=== PATIENT | male | born 1970 | race Two or more races ===

== ENCOUNTER 2017-09-19 11:48 | Emergency (ER) | payer BC ==
[~2017-09-19] VITALS: Ht 170.2 cm; Wt 75.7 kg
[~2017-09-19 11:48] MED LIST: NEXIUM40 MG ORAL
[2017-09-19] MEDS ORDERED: ASPIRIN81 MG ORAL (12:01)
[2017-09-19] MEDS ORDERED: BRILINTA90 MG PO (12:01)
[2017-09-19 12:56] VITALS: BP 120/74
[2017-09-19 13:28] LABS: BASOPHILS % (AUTO) 0.4 % (0.0-2.0); EOSINOPHILS % (AUTO) 1.5 % (0.0-3.0); HEMOGLOBIN 16.3 G/DL (14.2-18.0); LYMPHOCYTES % (AUTO) 16.7 % (20.0-45.0); MEAN CORPUSCULAR VOLUME 88 FL (80-99); MONOCYTES % (AUTO) 12.9 % (1.0-10.0); NEUTROPHILS % (AUTO) 68.6 % (45.0-75.0); PLATELET COUNT 197 K/UL (150-450); RED BLOOD COUNT 5.19 M/UL (4.70-6.10); RED CELL DISTRIBUTION WIDTH 10.7 % (11.6-14.8); WHITE BLOOD COUNT 8.4 K/UL (4.8-10.8)
[2017-09-19] MEDS ORDERED: DiphenhydrAMINE 50mg/ml Inj IVP ONE (13:45)
[2017-09-19 13:54] LABS: APPEARANCE,URINE CLEAR; BILIRUBIN, URINE NEGATIVE (NEGATIVE); GLUCOSE, URINE (UA) NEGATIVE (NEGATIVE); KETONES,URINE NEGATIVE (NEGATIVE); LEUKOCYTE ESTERASE ,URINE 1+ (NEGATIVE); NITRITE,URINE NEGATIVE (NEGATIVE); PH,URINE 6 (4.5-8.0); PROTEIN,URINE 2+ (NEGATIVE); UROBILINOGEN,URINE 4 MG/DL (0.0-1.0)
[2017-09-19 13:54] LABS: ALANINE AMINOTRANSFERASE 63 U/L (12-78); ALBUMIN 3.6 G/DL (3.4-5.0); ALKALINE PHOSPHATASE 82 U/L (46-116); ANION GAP 9 mmol/L (5-15); ASPARTATE AMINO TRANSFERASE 22 U/L (15-37); BILIRUBIN,TOTAL 0.7 MG/DL (0.2-1.0); BLOOD UREA NITROGEN 18 mg/dL (7-18); CALCIUM 8.5 MG/DL (8.5-10.1); CARBON DIOXIDE 27 MMOL/L (21-32); CHLORIDE 100 MMOL/L (98-107); CREATINE KINASE 71 U/L (26-308); CREATININE 0.9 MG/DL (0.55-1.30); SODIUM 136 MMOL/L (136-145)
[2017-09-19 13:56] LABS: POTASSIUM 2.7 MMOL/L (3.5-5.1)
[2017-09-19 14:13] LABS: COLOR,URINE YELLOW
--- NOTE | 2017-09-19 14:34 | Emergency Room Report ---
History of Present Illness General Chief Complaint: Nausea, Vomiting, and Diarrhea Source: Patient Present Illness HPI Patient with recent trip to [place]. He ate [place] food and after began to have vomiting and diarrhea. The vomiting has persisted. The diarrhea has been copious, watery without blood. There have been cramps which are rated at 2-3/ 10. Might have vomited scant amount of blood with forceful vomiting. Feels weak. No fevers, headache, URI sy, cough. He feels a pressure in his chest and is concerned as he had recent angioplasty with some myocardial damage. The feels more like burning in stomach but there is also pressure. This feeling does not radiate. He is concerned about his heart and also feels overwhelming nausea. Stressful job. Aside from CAD, denies other medical problems (DM, HTN). He is on meds for COR at this time and was able to keep them down this AM. Allergies: Coded Allergies: No Known Allergies (Unverified , 12/09/14) Patient History Past Medical History: see triage record Past Surgical History: PTCA Social History: Denies: smoking Social History Narrative advertising Reviewed Nursing Documentation: PMH: Agreed, PSxH: Agreed Nursing Documentation-PMH Hx Cardiac Problems: Yes - 3 STENT,2PLACED IN MAY 2017,1 PLACED 2 WEEKS AGO Hx Hypertension: Yes - HIGH CHOLESTEROL Hx Gastrointestinal Problems: Yes Review of Systems All Other Systems: negative except mentioned in HPI Physical Exam Vital Signs Date Time Temp Pulse Resp B/P (MAP) Pulse Ox O2 Delivery O2 Flow Rate FiO2 09/19/17 11:51 98.3 76 18 123/82 96 Room Air 98.2 Sp02 EP Interpretation: reviewed, normal General Appearance: well appearing, no apparent distress, GCS 15 Head: normocephalic Eyes: bilateral eye normal inspection, bilateral eye PERRL ENT: moist mucus membranes Neck: supple Respiratory: lungs clear, normal breath sounds Cardiovascular #1: regular rate, rhythm Cardiovascular #2: 2+ radial (R) Gastrointestinal: normal inspection, no mass, non-distended, no guarding, no rebound, abnormal bowel sounds - sll hyperactive, tenderness - diffuse, minimal Musculoskeletal: back normal, gait/station normal, normal range of motion Neurologic: alert, oriented x3, grossly normal Psychiatric: mood/affect normal Skin: normal inspection, warm/dry Medical Decision Making Diagnostic Impression: Primary Impression: Nausea, vomiting, and diarrhea Additional Impressions: Hypokalemia Chest pain Qualified Codes: R07.9 - Chest pain, unspecified ER Course Patient presents with NVD and chest discomfort. DDx: AMI, GItis, electrolyte abnormalities, dehydration, Freida Melendez tear amongst others. Evaluatoin with EKG, and labs. Based on exam, CT and abd films not indicated. Patient will be treated with IV hydration, pepcid and zofran. EKG without injury. WBC normal, H/H normal. Electrolytes with low potassium. Still significant nausea after zofran. Compazine and benadryl given. Patient still nauseated. K is low. Unable to tolerate PO. Has unusual chest pain. Repeat EKG. Ativan given. K given IV. EKG is unchanged with NSSTTW changes. Due to risk of cardiac disease, low potassium and persistent nausea, admit tele. No tele beds. Repeat potassium and troponin in attempt to downgrade to medical bed. Signed out to Dr. Prather. Laboratory Tests Test 09/19/17 12:55 09/19/17 13:30 09/19/17 18:25 White Blood Count 8.4 K/UL (4.8-10.8) Red Blood Count 5.19 M/UL (4.70-6.10) Hemoglobin 16.3 G/DL (14.2-18.0) Hematocrit 46.0 % (42.0-52.0) Mean Corpuscular Volume 88 FL (80-99) Mean Corpuscular Hemoglobin 31.4 PG (27.0-31.0) H Mean Corpuscular Hemoglobin Concent 35.5 G/DL (32.0-36.0) Red Cell Distribution Width 10.7 % (11.6-14.8) L Platelet Count 197 K/UL (150-450) Mean Platelet Volume 7.5 FL (6.5-10.1) Neutrophils (%) (Auto) 68.6 % (45.0-75.0) Lymphocytes (%) (Auto) 16.7 % (20.0-45.0) L Monocytes (%) (Auto) 12.9 % (1.0-10.0) H Eosinophils (%) (Auto) 1.5 % (0.0-3.0) Basophils (%) (Auto) 0.4 % (0.0-2.0) Prothrombin Time 10.7 SEC (9.30-11.50) Prothrombin Time INR 1.0 (0.9-1.1) PTT 27 SEC (23-33) Sodium Level 136 MMOL/L (136-145) 137 MMOL/L (136-145) Potassium Level 2.7 MMOL/L (3.5-5.1) *L 2.9 MMOL/L (3.5-5.1) L Chloride Level 100 MMOL/L (98-107) 102 MMOL/L (98-107) Carbon Dioxide Level 27 MMOL/L (21-32) 30 MMOL/L (21-32) Anion Gap 9 mmol/L (5-15) 5 mmol/L (5-15) Blood Urea Nitrogen 18 mg/dL (7-18) 15 mg/dL (7-18) Creatinine 0.9 MG/DL (0.55-1.30) 0.9 MG/DL (0.55-1.30) Estimate Glomerular Filtration Rate > 60 mL/min (>60) > 60 mL/min (>60) Glucose Level 93 MG/DL (74-106) 94 MG/DL (74-106) Calcium Level 8.5 MG/DL (8.5-10.1) 8.4 MG/DL (8.5-10.1) L Total Bilirubin 0.7 MG/DL (0.2-1.0) Aspartate Amino Transferase (AST) 22 U/L (15-37) Alanine Aminotransferase (ALT) 63 U/L (12-78) Alkaline Phosphatase 82 U/L (46-116) Total Creatine Kinase 71 U/L (26-308) Troponin I 0.000 ng/mL (0.000-0.056) 0.000 ng/mL (0.000-0.056) Total Protein 7.3 G/DL (6.4-8.2) Albumin 3.6 G/DL (3.4-5.0) Globulin 3.7 g/dL Albumin/Globulin Ratio 1.0 (1.0-2.7) Lipase 64 U/L (73-393) L Urine Color Yellow Urine Appearance Clear Urine pH 6 (4.5-8.0) Urine Specific [place] 1.020 (1.005-1.035) Urine Protein 2+ (NEGATIVE) H Urine Glucose (UA) Negative (NEGATIVE) Urine Ketones Negative (NEGATIVE) Urine Occult Blood 2+ (NEGATIVE) H Urine Nitrite Negative (NEGATIVE) Urine Bilirubin Negative (NEGATIVE) Urine Urobilinogen 4 MG/DL (0.0-1.0) H Urine Leukocyte Esterase 1+ (NEGATIVE) H Urine RBC 5-10 /HPF (0 - 0) H Urine WBC 2-4 /HPF (0 - 0) Urine Squamous Epithelial Cells Occasional /LPF Urine Bacteria Occasional /HPF (NONE) Urine Mucus Moderate /LPF (NONE/OCC) H Pro-B-Type Natriuretic Peptide 16 pg/mL (0-125) EKG Diagnostic Results Rate: normal Rhythm: NSR ST Segments: no acute changes Other Impression Repeat EKG 14:26 - NSR, rate 65, normal axis and intervals. Normal EKG Rhythm Strip Diag. Results EP Interpretation: yes Rhythm: NSR, no PVC's, no ectopy Last Vital Signs Date Time Temp Pulse Resp B/P (MAP) Pulse Ox O2 Delivery O2 Flow Rate FiO2 09/19/17 12:56 98.0 61 13 120/74 98 Room Air 98.0 Status: improved Disposition: ADMITTED INPATIENT Condition: Serious Scripts Ranitidine Hcl* (ZANTAC*) 150 Mg Tablet 150 MG ORAL TWICE A DAY, #30 TAB Prov: ALBERTO PRATHER M.D. 09/19/17 Ondansetron Odt* (ZOFRAN ODT*) 4 Mg Tab.rapdis 4 MG ORAL Q6H Y for Nausea & Vomiting, #30 TAB 0 Refills Prov: ALBERTO PRATHER M.D. 09/19/17 Dicyclomine Hcl* (DICYCLOMINE HCL*) 10 Mg Capsule 10 MG PO QID, #20 CAP Prov: ALBERTO PRATHER M.D. 09/19/17 Referrals: CAROLINA BANSAL M.D. (PCP) Bakari Bernardo M.D. Sep 19, 2017 14:33
[2017-09-19] MEDS: Potassium Chloride 10 MEQ in D5W 1000ml 1,000 ML IV SCH ×2 (14:43→19:37)
[2017-09-19] MEDS ORDERED: LORazepam Inj 2mg/ml 1ml IV ONE (14:45)
[2017-09-19 15:00] VITALS: BP 116/73
[2017-09-19 17:00] VITALS: BP 110/77
[2017-09-19] MEDS ORDERED: D5 1/2NS 1,000 ML IV SCH (18:10)
[2017-09-19] MEDS ORDERED: LORazepam Inj 2mg/ml 1ml IV PRN (18:15)
[2017-09-19] MEDS ORDERED: Mylanta II UD 30ml ORAL PRN (18:15)
[2017-09-19] MEDS ORDERED: Nitroglycerin Subl 0.4mg tab SL PRN (18:15)
[2017-09-19] MEDS ORDERED: Morphine Sulfate 2mg/ml Inj IVP PRN (18:15)
[2017-09-19] MEDS ORDERED: Miralax 17gm pkt ORAL PRN (18:15)
[2017-09-19] MEDS ORDERED: ATORVASTATIN CA80 MG ORAL (18:53)
[2017-09-19] MEDS ORDERED: METOPROLOL SUCC25 MG ORAL (18:53)
[2017-09-19] MEDS ORDERED: LISINOPRIL5 MG ORAL (18:53)
[2017-09-19] MEDS ORDERED: LUNESTA2 MG ORAL (18:59)
[2017-09-19 19:07] VITALS: BP 121/71
[2017-09-19] MEDS ORDERED: Mylanta II UD 30ml ORAL ONE (19:15)
[2017-09-19] MEDS ORDERED: Dicyclomine HCl 10mg/5ml oral soln ORAL ONE (19:15)
[2017-09-19] MEDS ORDERED: Lidocaine 2% Visc 15ml soln ORAL ONE (19:15)
[2017-09-19 19:16] LABS: ANION GAP 5 mmol/L (5-15); BLOOD UREA NITROGEN 15 mg/dL (7-18); CALCIUM 8.4 MG/DL (8.5-10.1); CARBON DIOXIDE 30 MMOL/L (21-32); CHLORIDE 102 MMOL/L (98-107); CREATININE 0.9 MG/DL (0.55-1.30); POTASSIUM 2.9 MMOL/L (3.5-5.1); SODIUM 137 MMOL/L (136-145)
[2017-09-19] MEDS ORDERED: ZOFRAN ODT4 MG ORAL (19:44)
[2017-09-19] MEDS ORDERED: RANITIDINE HCL150 MG ORAL (19:44)
[2017-09-19] MEDS ORDERED: DICYCLOMINE HCL10 MG PO (19:44)
[2017-09-19 20:00] VITALS: BP 120/74
[2017-09-19 20:10] VITALS: BP 120/74
[2017-09-19] MEDS ORDERED: Heparin 5000 units/ml inj SUBQ SCH (21:00)
[2017-09-20] MEDS ORDERED: Pantoprazole Inj IV SCH (09:00)
--- NOTE | 2017-09-20 17:53 | Cardiology Report ---
APPROVED REPORT EKG Measurement Heart [id number] Normal sinus rhythm Normal ECG
--- NOTE | 2017-09-20 17:55 | Cardiology Report ---
APPROVED REPORT EKG Measurement Heart [id number] Normal sinus rhythm Normal ECG
== END 2017-09-19 20:10 | disposition home or self-care (01) ==
LOC: EMR 12:40 → CANBEDREQ 19:41 → EMR 20:10
DX: E87.6 Hypokalemia (principal); R19.7 Diarrhea, unspecified; R11.2 Nausea with vomiting, unspecified; R07.9 Chest pain, unspecified; Z95.5 Presence of coronary angioplasty implant and graft; E78.00 Pure hypercholesterolemia, unspecified; I25.10 Atherosclerotic heart disease of native coronary artery without angina pectoris
CPT/HCPCS: 36415; 80048; 80053; 81003; 82550; 83690; 83880; 84484; 85025; 85610; 85730; 87081; 93005; 96361; 96374; 96375; 99284; J0780; J1200; J2405; J3480; J7070; S0028; J8499